=== PATIENT | male | born 1955 | race African-American/Black ===

== ENCOUNTER 2022-06-06 11:39 | Observation (INO) | payer OTHER, BC, SELFPAY ==
[2022-06-06] VITALS (12 sets, daily range): BP systolic 151–186; BP diastolic 84–112; PULSE 78–87; RESP 12–20; TEMP 36.4–36.8; O2SAT 97–100
--- NOTE | ~2022-06-06 | MR_ITS ---
EXAMINATION: MR brain/brain stem wo/w con DATE: 06/07/2022 08:16 INDICATION: Stroke with slurred speech, facial droop and unilateral hemiparesis TECHNIQUE: Magnetic resonance imaging (MRI) of the brain and brainstem was performed without and with 15 mL Multihance intravenous contrast. Sequences included sagittal and axial T1-weighted SE, axial d iffusion-weighted FS SE, axial T2*-weighted GRE, axial 3D SWAN, axial T2-weighted FLAIR, and axial T2 -weighted FSE. Postcontrast axial and coronal T1-weighted SE was obtained. Apparent diffusion coeffic ient (ADC) maps were created. COMPARISON: None. FINDINGS: There are small regions of restricted diffusion with associated mild increased T2 signal in the right frontoparietal luevano radiata, on the sulcus in the posterior left frontal lobe and at the tip of a generous in the anterior right parietal lobe consistent with acute infarcts. No intracranial hemorrha ge or abnormal intracranial mass lesion. There are additional scattered areas of nonspecific increase d T2-weighted signal intensity in the cerebral white matter, predominantly involving the deep and per iventricular white matter. Mild susceptibility artifact at the bilateral basal ganglia on the SWAN im ages with associated mild increased T1 signal at the right basal ganglia secondary to dystrophic calc ifications subtly visible on the prior CT. There are no intraparenchymal signal abnormalities seen on the other pulse sequences. The ventricles are symmetric and normal in size. There are no abnormal ex tra-axial fluid collections. Flow voids are seen in the cerebral arteries on the T2-weighted sequence s consistent with their expected patency. Mild mucosal thickening the paranasal sinuses with dependen tly layering fluid in the left sphenoid sinus and bilateral posterior ethmoid air cells consistent wi th acute sinusitis. Visualized orbits and soft tissues are unremarkable. There are no areas of abnorm al enhancement on the post contrast images. IMPRESSION: 1. Very small acute infarcts at the posterior left frontal lobe, anterior right parietal lobe and in the right frontoparietal luevano radiata. 2. Mild scattered white matter T2 hyperintensity which is within normal limits for age and likely seq uela of chronic small vessel ischemic disease. 2. Sinus disease with fluid layering in the left sphenoid and bilateral ethmoid air cells suggesting acute sinusitis. Reviewed, dictated and finalized at location A. GENCY NURSE IMPRESSION: 1. Very small acute infarcts at the posterior left frontal lobe, anterior right parietal lobe and in the right frontoparietal luevano radiata. 2. Mild scattered white matter T2 hyperintensity which is within normal limits for age and likely sequela of chronic small vessel ischemic disease. 2. Sinus disease with fluid layering in the left sphenoid and bilateral ethmoid air cells suggesting acute sinusitis.
--- NOTE | ~2022-06-06 | CT_ITS ---
EXAMINATION: CT brain wo con DATE: 06/06/2022 12:20 INDICATION: Slurred speech, facial droop and unilateral weakness TECHNIQUE: Computed tomography (CT) of the head was performed without intravenous contrast. Sagittal and coronal reconstructions were performed. The mA was adjusted according to patient size. Iterative reconstruction technique was employed. The dose-length product was 983.67 mGy-cm. COMPARISON: None FINDINGS: Small old lacunar infarct in the right frontal lobe centrum semiovale. There is mild scattered white matter hypoattenuation consistent with chronic small vessel ischemic disease. No acute intracranial hemorrhage, acute infarction or abnormal extra axial fluid collection. Ventricles are normal and symm etric. No mass/mass effect. Mucosal thickening in the bilateral ethmoid and sphenoid sinuses with dep endently layering mucus in the left sphenoid sinus consistent with acute sinusitis. The orbits and ma stoid air cells are normal. IMPRESSION: 1. No acute intracranial process. 2. Small old lacunar infarct in the right frontal lobe centrum semiovale with additional scattered mi ld white matter hypoattenuation consistent with chronic small vessel ischemic disease. 3. Dependently layering fluid in the left sphenoid sinus consistent with acute sinusitis. Reviewed, dictated and finalized at location A. D MAP TECHNICIAN IMPRESSION: 1. No acute intracranial process. 2. Small old lacunar infarct in the right frontal lobe centrum semiovale with a dditional scattered mild white matter hypoattenuation consistent with chronic s mall vessel ischemic disease. 3. Dependently layering fluid in the left sphenoid sinus consistent with acute sinusitis.
--- NOTE | ~2022-06-06 | US_ITS ---
EXAMINATION: US renal BI DATE: 06/07/2022 08:48 INDICATION: Renal failure, poorly controlled hypertension TECHNIQUE: Multiple grayscale and Doppler ultrasound images of the kidneys were obtained. COMPARISON: None. FINDINGS: The right kidney measures 11.0 x 5.5 x 5.9 cm. The left kidney measures 12.9 x 5.7 x 5.8 cm. The kidn eys demonstrate normal parenchymal echogenicity. There is no hydronephrosis. The bladder is normal. IMPRESSION: Unremarkable renal sonogram findings. Reviewed, dictated and finalized at location K. ING DIRECTOR
--- NOTE | ~2022-06-06 | CT_ITS ---
EXAMINATION: CTA BRAIN/CAROTID DATE: 06/06/2022 14:25 INDICATION: Slurred speech, facial droop and unilateral hemiparesis. TECHNIQUE: Computed tomographic angiography (CTA) of the head and neck was performed with 100 mL Omni paque-350 intravenous contrast. Multiplanar reconstructions and maximum intensity projection 3D-recon structions of the carotid arteries and of the intracranial arteries were created by the technologist on a separate workstation. Automated exposure control and iterative reconstruction technique were emp loyed.The dose-length product was 1183.10 mGy-cm. COMPARISON: None. FINDINGS: Carotid arteries: Visualized aortic arch is normal in caliber with no dissection. There is a small amount of atheroscle rotic plaque with 0% stenosis of the both the left and right carotid bulbs relative to normal distal artery lumen diameter (NASCET criteria). . Bilateral subcentimeter thyroid nodules. Cervical soft tis sues visualized superior mediastinum are unremarkable. Visualized upper lungs are clear. Mild cervica l and upper thoracic spondylosis. Intracranial arteries Lobe arteries are codominant. There is a moderate, 50-70% stenosis at the intracranial left vertebral artery. Atherosclerotic plaque at the bilateral carotid siphons with mild, <50% stenosis. There are no aneurysms identified. Both A1 and P1 segments are patent. Cerebral arterial arborization appears symmetric. IMPRESSION: 1. Small mild atherosclerotic plaque with 0% stenosis of the right and left carotid bulbs relative to normal distal artery lumen diameter (NASCET criteria). 2. Moderate 50-70% stenosis at the intracranial left vertebral artery. Otherwise unremarkable cerebra l CT angiogram with no other hemodynamically significant stenosis or aneurysm. Reviewed, dictated and finalized at location A. BEATER IMPRESSION: 1. Small mild atherosclerotic plaque with 0% stenosis of the right and left car otid bulbs relative to normal distal artery lumen diameter (NASCET criteria). 2. Moderate 50-70% stenosis at the intracranial left vertebral artery. Otherwis e unremarkable cerebral CT angiogram with no other hemodynamically significant stenosis or aneurysm.
--- NOTE | ~2022-06-06 | XR_ITS ---
IMPRESSION: 1. No acute cardiopulmonary disease. EXAMINATION: XR chest 1V DATE: 06/06/2022 12:24 INDICATION: Transient ischemic episode with slurred speech and facial droop, weakness and stupor. TECHNIQUE: frontal view of the chest was obtained. COMPARISON: Chest radiograph dated 06/20/2018 FINDINGS: The lungs are clear with no focal airspace opacities, pulmonary edema, pleural effusion or pneumothor ax. The cardiomediastinal silhouette is normal. IMPRESSION: 1. No acute cardiopulmonary disease. Reviewed, dictated and finalized at location A. TERIA AIDE
--- NOTE | 2022-06-06 11:58 | ECG_ITS ---
Measurements Intervals [place] Rate: 76 P: 30 [place]: 172 QRS: -34 QRSD: 100 T: -9 QT: 361 QTc: 408 Interpretive Statements SINUS RHYTHM LEFT AXIS DEVIATION LOW QRS VOLTAGE IN PRECORDIAL LEADS PATTERN CONSISTENT WITH PULMONARY DISEASE RSR' V1 BORDERLINE ECG NO PREVIOUS ECG AVAILABLE FOR COMPARISON Electronically Signed On 06-06-2022 15:56:22 CONSIGNEE by Oliver Gar M.D.
[2022-06-06 12:14] LABS: Glucose Point of Care 138 mg/dl (65-105)
[2022-06-06 12:16] LABS: Basophils Percent Auto 0.4 % (0.2-1.2); Eosinophils Absolute Auto 0.4 K/mm3 (0-0.3); Eosinophils Percent Auto 4.2 % (0-4.4); Hematocrit 36.3 % (42.0-52.0); Hemoglobin 10.5 g/dL (14.0-18.0); Immature Granulocyte Absolute 0.03 K/mm3 (0.00-0.031); Immature Granulocyte Percent A 0.3 % (0-0.5); Lymphocytes Absolute Auto 1.68 K/mm3 (0.9-3.2); Lymphocytes Percent Auto 18.2 % (18.3-44.2); Mean Corpuscular HGB Conc 28.9 g/dl (32-36); Mean Corpuscular Hemoglobin 21.3 pg (26-34); Mean Corpuscular Volume 73.8 fl (80-100); Mean Platelet Volume 10.7 fl (7.4-10.4); Monocytes Absolute Auto 0.8 K/mm3 (0.1-0.6); Monocytes Percent Auto 8.5 % (2.6-8.5); Neutrophils Absolute Auto 6.3 K/mm3 (1.3-6.7); Neutrophils Percent Auto 68.4 % (45.5-73.1); Platelet Count Result 275 k/mm3 (150-375); Red Blood Count 4.92 M/mm3 (4.6-6.20); Red Cell Distribution Width 17.2 % (11.5-14.5); White Blood Count 9.2 K/mm3 (4.5-10.0)
[2022-06-06 12:28] LABS: INR 1.2; Prothrombin Time 14.4 Seconds (11.1-14.7)
[2022-06-06 12:29] LABS: Partial Thromboplastin Time 28.4 SECONDS (22.3-36.8)
[2022-06-06 12:30] LABS: Alanine Aminotransferase 28 U/L (6-50); Albumin Level 4.3 g/dL (3.5-5.1); Alkaline Phosphatase 100 U/L (38-126); Anion Gap 6 mmol/L (8-16); Aspartate Amino Transferase 43 U/L (17-59); Bilirubin,Total 0.6 mg/dL (0.2-1.3); Blood Urea Nitrogen 15 mg/dL (9-20); Calcium 8.8 mg/dL (8.4-10.2); Carbon Dioxide 26 mmol/L (22-30); Chloride 105 mmol/L (98-107); Estimated CRCL calculation 55 ml/min; Estimated Glomerular Filt Rate > 60; Glucose 139 mg/dL (65-110); Sodium 137 mmol/L (137-145)
[2022-06-06 12:34] LABS: Hypochromasia 1+ (NORMAL); Microcytosis 1+ (NORMAL); Ovalocytes 1+ (NORMAL); Platelet Estimate Adequate (Adequate); Schistocytes None Seen (NORMAL)
[2022-06-06 12:41] LABS: Troponin I < 0.012 ng/mL (0.000-0.034)
--- NOTE | 2022-06-06 12:51 | ED.GENADULT ---
HPI - General Adult General Chief complaint: Neuro Symptoms/Deficit Stated complaint: neuro symptoms Time Seen by Provider: 06/06/22 12:37 History of Present Illness HPI narrative: 66-year-old gentleman history of diabetes, hypertension presented with left-sided facial paralysis. Per patient, he was in his usual state of health last night went to sleep around 10 PM. This morning he woke up and his noted that he had left-sided facial weakness and slurring so presented to the ED for further evaluation. He denied dizziness, weakness, numbness, chest pain, headache, shortness of breath, fevers, chills, abdominal pain, dysuria, diarrhea, sick contacts. Past medical history: Hypertension, diabetes Past surgical history: Denied Medications: Amlodipine, insulin Allergies: No known drug allergies Social: Denied smoking, alcohol, recreational drugs Related Data Allergies Allergy/AdvReac Type Severity Reaction Status Date / Time No Known Allergies Allergy Unverified 06/20/18 20:41 Review of Systems Review of Systems: See HPI PMFSH Comments See HPI for history Exam Narrative: APPEARANCE: Alert, calm and cooperative, no acute distress, phonating, sitting comfortably during visit HEAD: atraumatic EYES: Pupils equal round an reactive to light, extra ocular movements intact, no conjunctival injection, no nystagmus NOSE: Normal no drainage NECK: Supple, without meningismus RESPIRATORY: Lungs clear to auscultation bilaterally, no wheezes/rales/rhonchi, breathing comfortably CARDIOVASCULAR: Regular rate and rhythm, no visible jugular venous distension ABDOMINAL: Soft, nontender, nondistended, no guarding, no rebound/peritoneal signs, no costovertebral tenderness to palpation BACK: no midline tenderness to palpation, no step offs EXTREMITIES: No edema, palpable peripheral pulses, warm, well perfused, no tenderness to bilateral calves. NEURO: Alert and oriented x3, moving all extremities symmetrically, normal finger nose finger, 5/5 strength throughout SKIN:: Warm, dry. Normal color PSYCHIATRIC: Normal affect/mood NIHSS: 2 for minor left facial paralysis, and mild dysarthria Course Course Emergency Course: CT imaging were reviewed, discussed with neurology and hospitalist. Neurology did not recommend acute intervention. Recommended starting Plavix, MRI, medical admission. Patient and family updated on current findings, recommended for medical admission for prevention of worsening stroke. Patient and family amenable for admission. Given acute nature of presenting disease process and potential for decompensation, the patient would benefit from medical admission for further optimization and management. Consultations Consultation #1: Neurologist consulted, Dr. Talha Le, communicated patient's HPI, physical exam, and CT imaging. Recommended no acute intervention. Recommended medical admission, start plavix and MRI. Date: 06/06/22 Time: 15:28 Consultation #2: Hospitalist - communicated consultation of history, physical, imaging, labs, and consultation with neurology. Accepted for medical admission Date: 06/06/22 Time: 15:28 Vital Signs Vital signs: Vital Signs Temperature 98.2 F 06/06/22 11:50 Pulse Rate 87 06/06/22 11:50 Respiratory Rate 16 06/06/22 11:50 Blood Pressure 186/89 H 06/06/22 11:50 Pulse Oximetry 99 06/06/22 11:50 Oxygen Delivery Room Air 06/06/22 11:50 Temperature 98.2 F 06/06/22 11:50 Pulse Rate 80 06/06/22 15:24 Respiratory Rate 20 06/06/22 15:24 Blood Pressure 163/84 H 06/06/22 15:24 Pulse Oximetry 99 06/06/22 15:24 Oxygen Delivery Room Air 06/06/22 11:50 Procedures Other Procedure Procedure 1: Other Procedure: ECG interpretation Per my independent interpretation, ECG is normal sinus rhythm, intervals within normal limits; does not demonstrate evidence of STEMI, ST depressions, hyperacute T waves, deWiners, [place], Wellens. Medical Decision Ma
[2022-06-06] MEDS: ASPIRIN 81 MG CHEWABLE TABLET 324 MG PO (13:08)
--- NOTE | 2022-06-06 15:30 | PM.IMHP ---
H&P: HPI History of Present Illness Date/Time: 06/06/22 15:30 Chief Complaint: Slurred speech. Narrative: This is a very pleasant 66-year-old male with insulin-dependent type 2 diabetes mellitus, hypertension, and obstructive sleep apnea who presented to the emergency department from home for evaluation of slurred speech. He was in his usual state of health when he went to bed last night at 22:00 and felt fine when he got up this morning. After he got out of bed he went to the other room to talk to his at which time they both noticed his slurred speech and tells me that his face looked ?crooked.? He has no other symptoms and he specifically denies vertigo, auditory and visual changes, difficulty swallowing, focal weakness, and paresthesias. He has no known history of cardiac dysrhythmia and denies sensations racing heart and palpitations. On arrival to the ED his blood pressure was 186/89. Head CT showed no acute intracranial process but did note findings of a previous infarct, unknown to the patient, and dependently layering fluid in the left sphenoid sinus consistent with acute sinusitis though he has no symptoms of such. CTA of the head and neck showed mildly atherosclerotic plaque was 0% stenosis of the right and left carotid bulbs and moderate 50 to 70% stenosis at the intracranial left vertebral artery. Dr. Palencia (neurology) was consulted and he recommends starting dual anti-platelet therapy and admitting the patient for close monitoring and further workup. Review of Systems Review of Systems: Twelve systems were reviewed. No fever, chills, or sweats. No recent cold or flu symptoms. No sick contacts. He denies chest pain and shortness of breath. No cough. No nausea, vomiting, or diarrhea. No dysuria. He believes his diabetes is pretty well controlled and he really sees a glucose over 170. No known retinopathy, nephropathy, or neuropathy. Except as documented, all other systems were reviewed and are negative. [facility] Past Medical History Medical History (Updated 06/06/22 @ 23:57 by Sirisha Woody PA-C) Hypertension Insulin dependent type 2 diabetes mellitus Obstructive sleep apnea on CPAP Surgical History Surgical History (Updated 06/06/22 @ 23:53 by Sirisha Woody PA-C) No history of previous surgery Family History Family History (Updated 06/06/22 @ 23:54 by Sirisha Woody PA-C) Mother Thyroid cancer Sibling Cerebrovascular accident Hypertension Social History Social History (Updated 06/06/22 @ 23:54 by Sirisha Woody PA-C) Social History: Surrogate medical decision maker: Obdulia English, spouse. Code status: Full code. Smoking status: Former smoker Tobacco type: cigarettes Second hand tobacco smoke exposure: No Alcohol intake: former Drinks per week: 0 Substance use: never Lack of Transportation: No Lack of Food: Never True Current Housing: I Have Housing Concerned About Future Housing: No Difficulty Paying Gas/Electric Bills: No Difficulty Paying for Meds: No Currently Unemployed: No Education: Associate Degree Difficulty w/ Childcare or Family Care: No Additional living arrangements comments: Resides in [place] with spouse. They have 6 grown children. 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
--- NOTE | 2022-06-06 15:34 | PC.NURSE ---
food tray ordered
[2022-06-06 17:23] LABS: Influenza A QL RT-PCR Negative (Negative); Influenza B QL RT-PCR Negative (Negative); SARS-CoV-2 RNA PCR Negative
[2022-06-06] MEDS: CLOPIDOGREL BISULFATE 75 MG TABLET PO (19:02)
[2022-06-07] VITALS (9 sets, daily range): BP systolic 154–163; BP diastolic 83–97; PULSE 67–80; RESP 12–18; TEMP 36–36.8; O2SAT 98–100
[2022-06-07] MEDS: INSULIN GLARGINE (*BKC) 100 UNITS/ML 56 UNITS SUB-Q ×2 (00:39→20:35)
[2022-06-07 01:05] LABS: Glucose Point of Care 123 mg/dl (65-105)
[2022-06-07 07:25] LABS: Hematocrit 34.5 % (42.0-52.0); Hemoglobin 9.7 g/dL (14.0-18.0); Mean Corpuscular HGB Conc 28.1 g/dl (32-36); Mean Corpuscular Hemoglobin 21.3 pg (26-34); Mean Corpuscular Volume 75.7 fl (80-100); Mean Platelet Volume 11.1 fl (7.4-10.4); Platelet Count Result 262 k/mm3 (150-375); Red Blood Count 4.56 M/mm3 (4.6-6.20); Red Cell Distribution Width 17.2 % (11.5-14.5); White Blood Count 8.9 K/mm3 (4.5-10.0)
[2022-06-07 07:27] LABS: Anion Gap 6 mmol/L (8-16); Blood Urea Nitrogen 16 mg/dL (9-20); Calcium 8.8 mg/dL (8.4-10.2); Carbon Dioxide 25 mmol/L (22-30); Chloride 108 mmol/L (98-107); Cholesterol 181 mg/dL (0-200); Estimated CRCL calculation 55 ml/min; Estimated Glomerular Filt Rate > 60; Glucose 128 mg/dL (65-110); HDL Direct 29 mg/dL; Magnesium 2.1 mg/dL (1.6-2.3); Sodium 139 mmol/L (137-145); Triglycerides 91 mg/dL (<150)
[2022-06-07 07:40] LABS: LDL Cholesterol Direct 116 mg/dL
--- NOTE | 2022-06-07 07:43 | PC.NURSE ---
to MRI per w/c
[2022-06-07 07:50] LABS: Iron 24 ug/dL (49-181)
[2022-06-07 08:00] LABS: Percent Iron Saturation 5 % (20-50)
[2022-06-07 08:35] LABS: Folic Acid 11.3 ng/mL (2.76->20)
[2022-06-07 08:42] LABS: Ferritin 5.14 ng/mL (11.1-264)
[2022-06-07] MEDS: ASPIRIN 81 MG ENTERIC TABLET PO (08:55)
[2022-06-07] MEDS: ATORVASTATIN 40 MG TABLET PO (08:55)
[2022-06-07] MEDS: amLODIPine BESYLATE 5 MG TABLET 10 MG PO (08:55)
[2022-06-07] MEDS: CLOPIDOGREL BISULFATE 75 MG TABLET PO (08:55)
--- NOTE | 2022-06-07 09:02 | PM.IMPN ---
Progress Note: A&P Assessment and Plan (1) Cerebrovascular accident: Code(s): I63.9 - Cerebral infarction, unspecified Status: Acute Assessment and Plan: The patient was in his usual state of health when he went to bed last night at 22:00 and awoke with mild slurred speech and left facial droop. NIH stroke scale was 2 for left facial palsy and dysarthria. No acute findings were noted on brain CT though an old infarct was seen, unknown to the patient. Dr. Palencia was consulted by the ED physician and he recommends dual anti-platelet therapy. Lipids have been ordered for a.m. and he has been started on a statin. Telemetry brain MRI impression: Very small acute infarcts in the posterior left frontal lobe anterior right parietal lobe and right frontoparietal luevano radiata echocardiogram Speech therapy consulted. PT OT ordered Patient started on Plavix 75 mg, aspirin 81 mg, and atorvastatin 40mg Patient not a candidate for tPA due to unknown last known well and being outside of the time frame Lipid panel levels within normal limits (2) Stenosis of left vertebral artery: Code(s): I65.02 - Occlusion and stenosis of left vertebral artery Status: Acute Assessment and Plan: CT of the head and neck showed moderate 50-70% stenosis at the intracranial left vertebral artery; otherwise unremarkable cerebral CT angiogram with no other hemodynamically significant stenosis or aneurysm. Dr. Palencia who recommends starting dual anti-platelet therapy. (3) Hypertension: Code(s): I10 - Essential (primary) hypertension Status: Acute Assessment and Plan: Stroke may very well have been precipitated by poorly controlled blood pressures. He has been running anywhere between 160 to 180s systolic since arrival. For now we will allow permissive hypertension with tighter control after 24 to 48 hours. Blood pressure 154/83 this a.m. Continue amlodipine (4) Insulin dependent type 2 diabetes mellitus: Code(s): E11.9 - Type 2 diabetes mellitus without complications; Z79.4 - [employer] (current) use of insulin Status: Acute Assessment and Plan: Chronic Continue basal insulin. Initiate sliding scale insulin, Accu-Cheks, and hypoglycemic protocol. hemoglobin A1c 7.9 (5) Obstructive sleep apnea on CPAP: Code(s): G47.33 - Obstructive sleep apnea (adult) (pediatric); Z99.89 - Dependence on other enabling machines and devices Status: Acute Assessment and Plan: Chronic CPAP will be provided for the patient to use while hospitalized. (6) Microcytic anemia: Code(s): D50.9 - Iron deficiency anemia, unspecified Status: Acute Assessment and Plan: Check iron studies as well as B12 and folates. Low iron, % saturation and ferritin on labs Start iron supplementation (7) Renal insufficiency: Code(s): N28.9 - Disorder of kidney and ureter, unspecified Status: Acute Assessment and Plan: Renal ultrasound ordered for a.m. Subjective Date/time seen: 06/07/22 09:02 Interval history: 66-year-old male with insulin-dependent type 2 diabetes mellitus, hypertension, and obstructive sleep apnea who presented to the emergency department from home for evaluation of slurred speech. Patient admitted under suspicion for CVA versus TIA. Patient underwent MRI today. Patient currently having left-sided facial droop that has slightly improved according to his along with slurred speech. Patient alert oriented x4. Patient denies chest pain, shortness a breath, nausea, vomiting, confusion, dizziness, visual changes/disruptions and fever. Review of Systems Review of Systems: All systems reviewed & are unremarkable except as noted in HPI and below Exam Narrative: GENERAL: Comfortable, no acute distress HENMT: moist mucous membranes EYES: EOM intact b/l NECK: no lymphadenopathy RESPIRATORY: clear to auscultation CARD
[2022-06-07 09:37] LABS: Hemoglobin A1C 7.3 % (<5.7)
[2022-06-07 09:50] LABS: Free T4 Free Thyroxine Reflex 1.12 ng/dL (0.78-2.19)
[2022-06-07 10:34] LABS: Total Triiodothyronine (T3) 1.04 NG/ML (0.97-1.69)
[2022-06-07 11:42] LABS: Glucose Point of Care 171 mg/dl (65-105)
--- NOTE | 2022-06-07 12:01 | WPDNEURCNPN ---
Assessment and Plan Assessment and plan (1) Stenosis of left vertebral artery: Code(s): I65.02 - Occlusion and stenosis of left vertebral artery Status: Acute (2) Brainstem stroke: Code(s): I63.9 - Cerebral infarction, unspecified Status: Acute Plan 1. Diabetes mellitus with neuropathy 2. Rule out the possibility of brainstem Nuclear facial palsy Versus peripheral facial palsy. MRI of the brain has been done the report is awaited Consult date: 06/07/22 HPI: Ady English is a 66 year old male admitted to the hospital through the emergency room for the complaints of left-sided facial weakness along with slurring of the speech though he was normal he when he went to bed at 10:00 p.m. and this particular deficit was noted in the morning he had no associated weakness or numbness of 1 side or other side. He is not allergic to any medication. He does have ongoing history of 1. Hypertension 2. Diabetes mellitus 3. No allergies . Initial eval in the emergency room he was noted to be mildly dysarthric with left-sided facial droop, initial CT scan of the head documented small lacunar infarct in right frontal lobe centrum semi ovale in addition to layering the fluid in the left sphenoid sinus consistent with the sinusitis, CTA documented mild atherosclerotic plaque with 0% stenosis of the right and left carotid bulb in addition to moderate 50 to 70% stenosis of the left vertebral artery, MRI of the brain has been done the report at this stage is not available. Review of Systems Review of Systems: All systems reviewed & are unremarkable except as noted in HPI and below [facility] Past Medical History Medical History (Updated 06/07/22 @ 12:08 by Rey Palencia MD) Hypertension Insulin dependent type 2 diabetes mellitus Obstructive sleep apnea on CPAP Surgical History Surgical History (Updated 06/06/22 @ 23:53 by Sirisha Woody PA-C) No history of previous surgery Family History Family History (Updated 06/06/22 @ 23:54 by Sirisha Woody PA-C) Mother Thyroid cancer Sibling Cerebrovascular accident Hypertension Social History Social History (Updated 06/06/22 @ 23:54 by Sirisha Woody PA-C) Social History: Surrogate medical decision maker: Obdulia English, spouse. Code status: Full code. Smoking status: Former smoker Tobacco type: cigarettes Second hand tobacco smoke exposure: No Alcohol intake: former Drinks per week: 0 Substance use: never Lack of Transportation: No Lack of Food: Never True Current Housing: I Have Housing Concerned About Future Housing: No Difficulty Paying Gas/Electric Bills: No Difficulty Paying for Meds: No Currently Unemployed: No Education: Associate Degree Difficulty w/ Childcare or Family Care: No Additional living arrangements comments: Resides in [place] with spouse. They have 6 grown children. 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 Meds Home Medications and Allergies Home Medications Medication Instructions Recorded Confirmed Type amlodipine 10 mg tablet 10 mg PO DAILY 06/06/22 06/06/22 History dulaglutide 3 mg/0.5 mL 3 mg subcut WEEKLY 06/06/22 06/06/22 History subcutaneous pen injector (Trulicity) insulin glargine 100 unit/mL (3 56 unit subcut HS 06/06/22 06/06/22 History mL) subcutaneous pen (Lantus Solostar U-100 Insulin) insulin lispro 100 unit/mL 1 sliding scale dose subcut 06/06/22 06/06/22 History subcutaneous pen USEASDIRECTD Allergies Allergy/AdvReac Type Severity Reaction Status Date / Time No Known Allergies Allergy Unverified 06/20/18 20:41 Vital Signs Vital Signs - 24 hr 06/06/22 12:37 06/06/22 13:04 06/06/22 13:53 Temperature Pulse Rate 78 78 78 Respiratory Rate 15 16 12 Blood Pressure 182/98 H 171/89 H 186/112 H Pulse Oximetry 98 97 98 Oxygen Delivery Fraction
[2022-06-07] MEDS: hydrALAZINE 10 MG TABLET PO (12:57)
[2022-06-07 16:45] LABS: Glucose Point of Care 139 mg/dl (65-105)
[2022-06-07 20:34] LABS: Glucose Point of Care 166 mg/dl (65-105)
[2022-06-08] VITALS (12 sets, daily range): BP systolic 153–165; BP diastolic 75–85; PULSE 62–90; RESP 14–16; TEMP 36.3–37.1; O2SAT 97–100
[2022-06-08 07:29] LABS: Hematocrit 35.6 % (42.0-52.0); Hemoglobin 10.1 g/dL (14.0-18.0); Mean Corpuscular HGB Conc 28.4 g/dl (32-36); Mean Corpuscular Hemoglobin 21.4 pg (26-34); Mean Corpuscular Volume 75.3 fl (80-100); Mean Platelet Volume 10.3 fl (7.4-10.4); Platelet Count Result 257 k/mm3 (150-375); Red Blood Count 4.73 M/mm3 (4.6-6.20); Red Cell Distribution Width 17.1 % (11.5-14.5); White Blood Count 9.3 K/mm3 (4.5-10.0)
[2022-06-08 07:37] LABS: Alanine Aminotransferase 24 U/L (6-50); Albumin Level 3.9 g/dL (3.5-5.1); Alkaline Phosphatase 73 U/L (38-126); Anion Gap 3 mmol/L (8-16); Aspartate Amino Transferase 27 U/L (17-59); Blood Urea Nitrogen 17 mg/dL (9-20); Calcium 8.7 mg/dL (8.4-10.2); Carbon Dioxide 30 mmol/L (22-30); Chloride 103 mmol/L (98-107); Estimated CRCL calculation 55 ml/min; Estimated Glomerular Filt Rate > 60; Glucose 84 mg/dL (65-110); Potassium 3.7 mmol/L (3.4-5.0); Sodium 136 mmol/L (137-145)
[2022-06-08 07:59] LABS: Glucose Point of Care 96 mg/dl (65-105)
[2022-06-08] MEDS: FERROUS SULFATE 324 MG TABLET PO (08:30)
[2022-06-08] MEDS: ASPIRIN 81 MG ENTERIC TABLET PO (08:31)
[2022-06-08] MEDS: amLODIPine BESYLATE 5 MG TABLET 10 MG PO (08:31)
[2022-06-08] MEDS: CLOPIDOGREL BISULFATE 75 MG TABLET PO (08:31)
[2022-06-08] MEDS: ATORVASTATIN 40 MG TABLET PO (08:31)
[2022-06-08 11:38] LABS: Glucose Point of Care 156 mg/dl (65-105)
--- NOTE | 2022-06-08 12:49 | WPDNEUROPN ---
Progress Note: A&P Assessment and Plan (1) Stenosis of left vertebral artery: Code(s): I65.02 - Occlusion and stenosis of left vertebral artery Status: Acute (2) Insulin dependent type 2 diabetes mellitus: Code(s): E11.9 - Type 2 diabetes mellitus without complications; Z79.4 - alf (current) use of insulin Status: Acute (3) Stroke: Code(s): I63.9 - Cerebral infarction, unspecified Status: Acute Plan will need to continue aspirin and Plavix and also discussed with the family about the outpatient neurovascular or pain about the left vertebral artery stenosis with stenting can be done or not Subjective Date/time seen: 06/08/22 12:49 Interval history: 66 years old right-handed male admitted through the emergency room evaluation up until now documented 1. 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 Ongoing diagnosis of diabetes mellitus 4. Small acute infarct at the posterior left frontal lobe anterior right parietal lobe and right frontoparietal coronal radiata 5. Acute sinusitis of ethmoid 6. 50 to 70% stenosis at the intracranial left vertebral artery otherwise negative CTA Objective Data Vital Signs Vital Signs: Vital Signs - 24 hr 06/07/22 14:58 06/07/22 14:45 06/07/22 16:00 Temperature 36.8 C Pulse Rate 71 80 Respiratory Rate 14 Blood Pressure 161/97 H Pulse Oximetry 100 Oxygen Delivery Room Air 06/07/22 20:05 06/07/22 20:00 06/08/22 00:05 Temperature 36.6 C Pulse Rate 67 79 71 Respiratory Rate 16 Blood Pressure 163/90 H Pulse Oximetry 100 97 Oxygen Delivery CPAP 06/08/22 02:03 06/08/22 00:00 06/08/22 04:00 Temperature Pulse Rate 74 74 67 Respiratory Rate Blood Pressure Pulse Oximetry 99 Oxygen Delivery CPAP 06/08/22 06:00 06/08/22 08:55 06/08/22 08:00 Temperature 36.5 C Pulse Rate 75 62 Respiratory Rate 16 Blood Pressure 165/85 H Pulse Oximetry 100 Oxygen Delivery Room Air 06/08/22 12:00 Temperature Pulse Rate 85 Respiratory Rate Blood Pressure Pulse Oximetry Oxygen Delivery Intake/Output Intake/Output: Intake & Output 06/05/22 06/06/22 06/07/22 06/08/22 23:59 23:59 23:59 23:59 Intake Total 870 680 Balance 870 680 Meds/Results Medications: Active Medications Generic Name Dose Route Start Last Admin Trade Name Freq PRN Reason Stop Dose Admin Amlodipine Besylate 10 mg 06/07/22 09:00 06/08/22 08:31 Amlodipine Besylate 5 Mg Tablet PO 10 mg DAILY AL Administration Aspirin 81 mg 06/07/22 09:00 06/08/22 08:31 Aspirin 81 Mg Enteric Tablet PO 81 mg QAM AL Administration Atorvastatin Calcium 40 mg 06/07/22 09:00 06/08/22 08:31 Atorvastatin 40 Mg Tablet PO 40 mg DAILY AL Administration Clopidogrel Bisulfate 75 mg 06/08/22 09:00 06/08/22 08:31 Clopidogrel Bisulfate 75 Mg Tablet PO 75 mg QAM AL Administration Dextrose 12.5 gm 06/06/22 23:44 Dextrose 50% 25 Gm/50 Ml Syringe IV PUSH PRN PRN Hypoglycemia Protocol Ferrous Sulfate 324 mg 06/08/22 08:00 06/08/22 08:30 Ferrous Sulfate 324 Mg Tablet PO 324 mg DAILY@0800 AL Administration Glucagon 1 mg 06/06/22 23:44 Glucagon For Inj 1 Mg Vial IM PRN PRN Hypoglycemia Protocol Glucose 15 gm 06/06/22 23:44 Glucose Oral Gel 15 Gm Of Glucse In 37.5 Gm Tube PO PRN PRN Hypoglycemia Protocol Dextrose 1,000 mls @ 100 mls/hr 06/06/22 23:44 Dextrose 5% 1,000 Ml IVPB PRN PRN Hypoglycemia Protocol Insulin Aspart 2 - 5 units 06/07/22 08:00 06/08/22 11:43 Insulin Aspart (*Bkc) 100 Units/Ml SUB-Q Not Given TIDWM [facility] Protocol Insulin Glargine 56 units 06/06/22 23:45 06/07/22 20:35 Insulin Glargine (*Bkc) 100 Units/Ml SUB-Q 56 units HS AL Administration Perflutren Lipid Microsphere 0 ml 06/07/22 13:46 Perflutren Lipid Microspheres 1.5 Ml Vial Diluted
--- NOTE | 2022-06-08 15:02 | PM.IMPN ---
Progress Note: A&P Assessment and Plan (1) Cerebrovascular accident: Code(s): I63.9 - Cerebral infarction, unspecified Status: Acute Assessment and Plan: The patient was in his usual state of health when he went to bed last night at 22:00 and awoke with mild slurred speech and left facial droop. NIH stroke scale was 2 for left facial palsy and dysarthria. No acute findings were noted on brain CT though an old infarct was seen, unknown to the patient. Dr. Palencia was consulted by the ED physician and he recommends dual anti-platelet therapy. Lipids have been ordered for a.m. and he has been started on a statin. Telemetry brain MRI impression: Very small acute infarcts in the posterior left frontal lobe anterior right parietal lobe and right frontoparietal luevano radiata echocardiogram ordered and awaiting results Speech therapy consulted and working with patient PT OT working with patient Patient started on Plavix 75 mg, aspirin 81 mg, and atorvastatin 40mg Patient not a candidate for tPA due to unknown last known well and being outside of the time frame Lipid panel levels within normal limits (2) Stenosis of left vertebral artery: Code(s): I65.02 - Occlusion and stenosis of left vertebral artery Status: Acute Assessment and Plan: CT of the head and neck showed moderate 50-70% stenosis at the intracranial left vertebral artery; otherwise unremarkable cerebral CT angiogram with no other hemodynamically significant stenosis or aneurysm. Dr. Palencia who recommends starting dual anti-platelet therapy. (3) Hypertension: Code(s): I10 - Essential (primary) hypertension Status: Chronic Assessment and Plan: Stroke may very well have been precipitated by poorly controlled blood pressures. He has been running anywhere between 160 to 180s systolic since arrival. For now we will allow permissive hypertension with tighter control after 24 to 48 hours. Blood pressure 154/83 this a.m. 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 Initiate sliding scale insulin, Accu-Cheks, and hypoglycemic protocol. hemoglobin A1c 7.9 (5) Obstructive sleep apnea on CPAP: Code(s): G47.33 - Obstructive sleep apnea (adult) (pediatric); Z99.89 - Dependence on other enabling machines and devices Status: Chronic Assessment and Plan: Chronic CPAP will be provided for the patient to use while hospitalized. (6) Microcytic anemia: Code(s): D50.9 - Iron deficiency anemia, unspecified Status: Chronic Assessment and Plan: Check iron studies as well as B12 and folates. Low iron, % saturation and ferritin on labs Start iron supplementation (7) Renal insufficiency: Code(s): N28.9 - Disorder of kidney and ureter, unspecified Status: Chronic Assessment and Plan: Renal ultrasound ordered for a.m. Time Spent With Patient Time with patient: Greater than 35 minutes Subjective Date/time seen: 06/08/22 15:02 Interval history: 66-year-old male with insulin-dependent type 2 diabetes mellitus, hypertension, and obstructive sleep apnea who presented to the emergency department from home for evaluation of slurred speech. MRI positive for CVA. Patient not a candidate for tPA. Patient alert oriented x4. Slurred speech improved from yesterday. Mild left facial droop, improved from yesterday. Patient denies chest pain, shortness a breath, nausea, vomiting, confusion, dizziness, visual changes/disruptions and fever. Patient's stated that she noticed some confusion last night but his since improved. Review of Systems Review of Systems: All systems reviewed & are unremarkable except as noted in HPI and below Exam Tomás
[2022-06-08 16:37] LABS: Glucose Point of Care 140 mg/dl (65-105)
[2022-06-08 20:49] LABS: Glucose Point of Care 152 mg/dl (65-105)
[2022-06-08] MEDS: INSULIN GLARGINE (*BKC) 100 UNITS/ML 56 UNITS SUB-Q (20:50)
[2022-06-09] VITALS: PULSE 68
[2022-06-09 04:00] VITALS: PULSE 67
[2022-06-09 06:00] VITALS: BP 144/82; PULSE 69; RESP 14; TEMP 36.4; O2SAT 99
[2022-06-09 06:46] LABS: Hematocrit 35.5 % (42.0-52.0); Hemoglobin 10.1 g/dL (14.0-18.0); Mean Corpuscular HGB Conc 28.5 g/dl (32-36); Mean Corpuscular Hemoglobin 20.9 pg (26-34); Mean Corpuscular Volume 73.5 fl (80-100); Mean Platelet Volume 10.6 fl (7.4-10.4); Platelet Count Result 259 k/mm3 (150-375); Red Blood Count 4.83 M/mm3 (4.6-6.20); White Blood Count 10.4 K/mm3 (4.5-10.0)
[2022-06-09 06:51] LABS: Alanine Aminotransferase 22 U/L (6-50); Alkaline Phosphatase 79 U/L (38-126); Anion Gap 6 mmol/L (8-16); Aspartate Amino Transferase 23 U/L (17-59); Bilirubin,Total 0.7 mg/dL (0.2-1.3); Blood Urea Nitrogen 17 mg/dL (9-20); Calcium 8.6 mg/dL (8.4-10.2); Carbon Dioxide 26 mmol/L (22-30); Chloride 104 mmol/L (98-107); Estimated CRCL calculation 56 ml/min; Estimated Glomerular Filt Rate > 60; Glucose 90 mg/dL (65-110); Potassium 3.7 mmol/L (3.4-5.0); Sodium 136 mmol/L (137-145)
[2022-06-09 07:52] LABS: Glucose Point of Care 97 mg/dl (65-105)
[2022-06-09 08:00] VITALS: PULSE 74
--- NOTE | 2022-06-09 08:00 | ECHO_ITS ---
Patient Info Name: Ady English Age: 66 years : 1955 Gender: Male Ht: 66 in Wt: 243 lbs BSA: 2.32 m2 HR: 69 bpm BP: 144 / 82 mmHg Heart Rhythm: Sinus Rhythm Technical Quality: Fair Exam Date: 06/09/2022 7:32 AM Exam Location: [facility] Pulmonary Patient Status: Inpatient Admit Date: 06/06/2022 Staff Ordering Physician: Rey Palencia MD Government Operations Consultant: Roseann Ott RDCS Attending Provider: Brenda Beth DO Exam Type: CA echo dop bubble study w con Study Info Indications - stroke Complete two-dimentional, color flow and Doppler transthoracic echocardiogram is performed with agitated saline and with contrast to opacify the left ventricle and to improve the delineation of the left ventricle endocardial borders. Contrast/Agitated Saline Contrast/Ag. Saline: Definity Amount: 3.00 ml Administered By: Roseann Ott LILLIAN Existing IV Access: Yes IV Access Condition: patent with no signs of infiltration Contrast/Ag. Saline: Agitated Saline Amount: 20.00 ml Administered By: Jerrell Saucedo [facility] Existing IV Access: Yes IV Access Condition: patent with no signs of infiltration Summary 1. Left ventricular systolic function is normal, estimated at 65-70%. 2. There is moderately increased left ventricular wall thickness. 3. The left ventricular diastolic function is grade I diastolic dysfunction. 4. Right ventricular systolic function is normal. 5. Intact interatrial septum visualized by color flow and agitated saline imaging. 6. No significant valvular disease. Left Ventricle Left ventricular chamber dimension is normal. Left ventricular systolic function is normal, estimated at 65-70%. There is moderately increased left ventricular wall thickness. The left ventricular diastolic function is grade I diastolic dysfunction. Right Ventricle Right ventricular chamber dimension is normal. Right ventricular systolic function is normal. Left Atria Left atrial chamber dimension is normal. Right Atria Right atrial chamber dimension is normal. Atrial Septum Intact interatrial septum visualized by color flow and agitated saline imaging. Aortic Valve The aortic valve is trileaflet. There is no aortic valve stenosis. There is no aortic valve regurgitation. Pulmonic Valve The pulmonic valve is not well visualized. Mitral Valve The mitral valve has normal leaflets. There is no mitral valve stenosis. There is trace mitral valve regurgitation. Tricuspid Valve There is no significant tricuspid valve stenosis. There is no tricuspid valve regurgitation. Pericardium/Pleural The pericardium appears epicardial fat pad. There is no pericardial effusion. Aorta The aortic root size at the sinus of Valsalva is normal. Left Ventricular Outflow Tract Name Value Normal LVOT 2D LVOT Diameter 2.1 cm LVOT Doppler LVOT Peak Gradient 4 mmHg LVOT Mean Gradient 2 mmHg LVOT VTI 18 cm LV
[2022-06-09] MEDS: PERFLUTREN LIPID MICROSPHERES 1.5 ML VIAL DILUTED TO 10 ML TOTAL VOLUME IV PUSH (08:15)
--- NOTE | 2022-06-09 08:17 | IVDEFINITY ---
Prior to administration of IV Definity the patient was educated on the risks and benefits of the imaging enhancing agent including potential adverse side effects. The patient verbalized understanding. Allergies were verified. No exclusion criteria were identified and at least one of the following inclusion criteria were met: 1) physician request, 2) patient technically difficult to image (per the [place] [employer] guidelines of two or more segments not discernable within the apical view), or 3) questionable left ventricular function. ?
[2022-06-09] MEDS: ATORVASTATIN 40 MG TABLET PO (08:46)
[2022-06-09] MEDS: ASPIRIN 81 MG ENTERIC TABLET PO (08:47)
[2022-06-09] MEDS: amLODIPine BESYLATE 5 MG TABLET 10 MG PO (08:47)
[2022-06-09] MEDS: CLOPIDOGREL BISULFATE 75 MG TABLET PO (08:47)
[2022-06-09] MEDS: FERROUS SULFATE 324 MG TABLET PO (08:47)
[2022-06-09] MEDS: lisinopriL 20 MG TABLET PO (10:28)
--- NOTE | 2022-06-09 10:43 | PC.NURSE ---
Administered Lisinopril as ordered by MD, explained side effects of medication to patient, patient verbalized understanding and agreed to take medication as recommended.
[2022-06-09 11:36] LABS: Glucose Point of Care 101 mg/dl (65-105)
--- NOTE | 2022-06-09 11:51 | PM.DS ---
DS: Admitting Diagnosis Discharge Date 06/09/2022 1151 Admitting Diagnosis Cerebrovascular accident Stenosis of left vertebral artery? Hypertension Insulin dependent type 2 diabetes mellitus Obstructive sleep apnea on CPAP Microcytic anemia Renal insufficiency DS: Discharge Diagnosis Discharge Diagnosis (1) Cerebrovascular accident: Qualifiers: CVA mechanism: stenosis Precerebral and cerebral artery: vertebral artery Laterality of affected vessel: left Qualified Code(s): I63.212 - Cerebral infarction due to unspecified occlusion or stenosis of left vertebral artery Code(s): I63.9 - Cerebral infarction, unspecified Status: Acute Assessment and Plan: The patient presented to the ED for evaluation of mild slurred speech and left facial droop starting 2200 06/05/22. NIH stroke scale was 2 for left facial palsy and dysarthria. No acute findings were noted on brain CT though an old infarct was seen, unknown to the patient. Dr. Palencia was consulted by the ED physician and he recommends dual anti-platelet therapy. Lipid panel - LDL 116, HDL 29, triglycerides 91. Started on Lipitor 40 mg PO daily. Monitored telemetry and no arrhythmia noted. brain MRI impression: Very small acute infarcts in the posterior left frontal lobe anterior right parietal lobe and right frontoparietal luevano radiata CT of the head and neck showed moderate 50-70% stenosis at the intracranial left vertebral artery echocardiogram - grade 1 diastolic dysfunction, no shunt. Speech therapy, PT and OT consulted. No home needs. Patient started on Plavix 75 mg, aspirin 81 mg, and atorvastatin 40mg Patient not a candidate for tPA due to last known well >4.5 hours prior (2) Stenosis of left vertebral artery: Code(s): I65.02 - Occlusion and stenosis of left vertebral artery Status: Acute Assessment and Plan: CT of the head and neck showed moderate 50-70% stenosis at the intracranial left vertebral artery cerebral CT angiogram with no other hemodynamically significant stenosis or aneurysm. Neurology following and recommends outpatient evaluation for stenosis (3) Hypertension: Qualifiers: Hypertension type: primary hypertension Qualified Code(s): I10 - Essential (primary) hypertension Code(s): I10 - Essential (primary) hypertension Status: Chronic Assessment and Plan: Chronic, BP elevated this admission BP 144-180/80-100. Continued amlodipine 10 mg daily Added losartan 25 mg daily we discussed home BP monitoring. (4) Insulin dependent type 2 diabetes mellitus: Code(s): E11.9 - Type 2 diabetes mellitus without complications; Z79.4 - USP (current) use of insulin Status: Chronic Assessment and Plan: Chronic Continued basal-bolus insulin. hemoglobin A1c 7.9 discussed lifestyle modifications (5) Obstructive sleep apnea on CPAP: Code(s): G47.33 - Obstructive sleep apnea (adult) (pediatric); Z99.89 - Dependence on other enabling machines and devices Status: Chronic Assessment and Plan: Chronic, continued CPAP (6) Microcytic anemia: Code(s): D50.9 - Iron deficiency anemia, unspecified Status: Chronic Assessment and Plan: Presumed chronic, Hgb 10 this admission. Serum iron 24, saturation 5%, TIBC high normal 437, ferritin low 5.14 B12 and folate within normal limits Started ferrous sulfate 325 mg PO daily supplementation (7) Renal insufficiency: Code(s): N28.9 - Disorder of kidney and ureter, unspecified Status: Chronic Assessment and Plan: BUN 17, creatinine 1.4, GFR >60 this admission. Renal ultrasound unremarkable. DS: Summary Hospital Course Reason for hospitalization: slurred speech Hospital Course: Timmy English is a 66-year-old male with insulin-dependent type 2 diabetes mellitus, hypertension, and obstructive sleep apnea who presented to the emergency d
[2022-06-09 14:00] VITALS: BP 133/67; PULSE 79; RESP 14; TEMP 36.3; O2SAT 98
== END 2022-06-09 15:55 | disposition home or self-care (01) ==
LOC: ANHED 15:33 → ANH3MEDSUR 21:05
PROVIDERS: Emergency Medicine; Internal Medicine Critical Care Medicine; Physician Assistant; Admitting Provider Student in an Organized Health Care Education/Training Program; Emergency Provider Emergency Medicine; PCP Internal Medicine; Visit Provider Family Medicine
DX: I63.9 Cerebral infarction, unspecified (principal); I65.02 Occlusion and stenosis of left vertebral artery; R29.810 Facial weakness; R47.1 Dysarthria and anarthria; E11.9 Type 2 diabetes mellitus without complications; I11.9 Hypertensive heart disease without heart failure; J01.90 Acute sinusitis, unspecified; G47.33 Obstructive sleep apnea (adult) (pediatric); Z99.89 Dependence on other enabling machines and devices; D50.9 Iron deficiency anemia, unspecified; N28.9 Disorder of kidney and ureter, unspecified; I44.4 Left anterior fascicular block; R90.82 White matter disease, unspecified; R29.702 NIHSS score 2; Z20.822 Contact with and (suspected) exposure to COVID-19; Z87.891 Personal history of nicotine dependence; Z79.4 Long term (current) use of insulin; Z79.899 Other long term (current) drug therapy; Z82.49 Family history of ischemic heart disease and other diseases of the circulatory system; Z82.3 Family history of stroke
CPT/HCPCS: 36415; 70450; 70496; 70498; 70553; 71045; 76775; 80048; 80053; 80061; 82607; 82728; 82746; 82948; 83036; 83540; 83550; 83735; 84439; 84443; 84480; 84484; 85025; 85027; 85610; 85730; 87636; 92507; 92522; 93005; 94660; 96374; 96375; 97161; 97165; 99285; A9270; A9577; C8929; G0378; J1815; Q9957; Q9967

== ENCOUNTER → 2023-08-11 07:27 | Outpatient (CLI) | payer OTHER, BC, SELFPAY ==
--- NOTE | ~2023-08-11 | MR_ITS ---
EXAMINATION: MR lumbar spine wo con DATE: 08/11/2023 08:01 INDICATION: Low back pain, unspecified. TECHNIQUE: Magnetic resonance imaging (MRI) of the lumbar spine was performed without intravenous con trast. Sequences included sagittal T2-weighted FSE, sagittal T2-weighted FS FSE, sagittal T1-weighted FSE, and axial T2-weighted FSE. COMPARISON: None FINDINGS: There is 3 mm anterolisthesis of L5 on S1. There are Schmorl's nodes at multiple levels. In tervertebral disc heights are normal. The distal spinal cord signal intensity is normal. The conus me dullaris is at T12. There is a 13 mm cyst in right kidney. The following disc levels are specifically discussed: L1-L2: The disc does not extend beyond the endplate margin. There is mild bilateral facet joint osteo arthritis. There is no neural foraminal stenosis. There is no central canal stenosis. L2-L3: The disc does not extend beyond the endplate margin. There is mild bilateral facet joint osteo arthritis. There is no neural foraminal stenosis. There is no central canal stenosis. L3-L4: The disc is mildly bulging. There is mild bilateral facet joint osteoarthritis. There is mild bilateral neural foraminal stenosis. There is no central canal stenosis. L4-L5: The disc is bulging and has an annular fissure. There is severe bilateral facet joint osteoart hritis. There is mild bilateral neural foraminal stenosis. There is mild central canal stenosis. L5-S1: The disc does not extend beyond the endplate margin. There is severe bilateral facet joint ost eoarthritis. There is a small synovial cyst of left facet joint. There is mild right and moderate lef t neural foraminal stenosis. There is mild central canal stenosis. IMPRESSION: 1. Moderate left neural foraminal stenosis at L5-S1. Otherwise mild lumbar spondylosis. Reviewed, dictated and finalized at location A. [employer]CTION TROUBLESHO[employer]ER IMPRESSION: 1. Moderate left neural foraminal stenosis at L5-S1. Otherwise mild lumbar spon dylosis.
== END ==
PROVIDERS: PCP Internal Medicine; Visit Provider Internal Medicine
DX: M48.061 Spinal stenosis, lumbar region without neurogenic claudication (principal); M47.896 Other spondylosis, lumbar region
CPT/HCPCS: 72148

== ENCOUNTER 2024-03-13 09:40 | Outpatient (CLI) | payer OTHER, BC, SELFPAY ==
[2024-03-13 11:02] LABS: Cholesterol 116 mg/dL (0-200); HDL Direct 36 mg/dL; Triglycerides 47 mg/dL (<150)
[2024-03-13 11:21] LABS: LDL Cholesterol Direct 60 mg/dL
[2024-03-15 12:39] LABS: Homocysteine 17.6 umol/L (<11.4)
== END 2024-03-13 09:41 | disposition home or self-care (01) ==
PROVIDERS: PCP Internal Medicine; Visit Provider Psychiatry & Neurology Neurology
DX: I63.9 Cerebral infarction, unspecified (principal); I65.02 Occlusion and stenosis of left vertebral artery; I10 Essential (primary) hypertension; E11.9 Type 2 diabetes mellitus without complications; Z79.4 Long term (current) use of insulin
CPT/HCPCS: 36415; 80061; 83090

== ENCOUNTER 2024-11-17 11:32 | Outpatient (CLI) | payer OTHER, SELFPAY ==
--- NOTE | ~2024-11-17 | MR_ITS ---
MRI of the thoracic spine Clinical History: Back pain, lower extremity pain Technique: Axial T2-weighted and gradient images, and sagittal T1-weighted, T2-weighted, and STIR saroj ges were acquired. Findings: There is no fracture or subluxation of the thoracic spine. Vertebral bodies maintain normal height and alignment. No bone marrow signal abnormality seen. There is multilevel minimal degenerative disc narrowing at the upper to mid thoracic spine. No signif icant disc bulge or herniation seen at any thoracic level. No spinal canal stenosis or cord compressi on identified. Neural foramina are preserved throughout the thoracic spine. No abnormal signal seen in the spinal cord. Paravertebral soft tissues are unremarkable. Impression: Minimal degenerative spondylitic changes, as above. Reviewed, dictated and finalized at location . Impression: Minimal degenerative spondylitic changes, as above.
== END 2024-11-17 11:33 | disposition home or self-care (01) ==
LOC: MICIMG 11:33
PROVIDERS: PCP Internal Medicine
DX: M54.6 Pain in thoracic spine (principal)
CPT/HCPCS: 72146